=== PATIENT | female | born 1995 | race African-American/Black ===

== ENCOUNTER 2019-02-23 15:47 | Emergency (ER) | payer MEDICAID, OTHER ==
[~2019-02-23] VITALS: Ht 149.9 cm; Wt 81.6 kg
--- NOTE | 2019-02-23 16:21 | NUR ---
ED Nurse Note: Pt walked into ED from home w/ c/o unusual vaginal bleeding. Pt states had menstruation week of Jan 3 and again on Feb 09. Pt states yesterday also had one quick gush of blood. Pt states she has had abdominal pain for weeks in mid abdomen 8/10 pain. No acute distress.
[2019-02-23 16:24] VITALS: BP 110/77
[2019-02-23 16:29] LABS: APPEARANCE,URINE CLEAR; BILIRUBIN, URINE NEGATIVE (NEGATIVE); COLOR,URINE PALE YELLOW; GLUCOSE, URINE (UA) NEGATIVE (NEGATIVE); KETONES,URINE NEGATIVE (NEGATIVE); LEUKOCYTE ESTERASE ,URINE NEGATIVE (NEGATIVE); NITRITE,URINE NEGATIVE (NEGATIVE); PH,URINE 8 (4.5-8.0); PROTEIN,URINE 1+ (NEGATIVE); UROBILINOGEN,URINE 1 MG/DL (0.0-1.0)
[2019-02-23] MEDS ORDERED: Omnipaque-300 100ml vial INJ PRN (16:45)
[2019-02-23] MEDS ORDERED: Ketorolac 30mg Inj IV ONE (16:45)
[2019-02-23 17:08] LABS: ANION GAP 7 mmol/L (5-15); BLOOD UREA NITROGEN 11 mg/dL (7-18); CALCIUM 8.8 MG/DL (8.5-10.1); CARBON DIOXIDE 28 MMOL/L (21-32); CHLORIDE 105 MMOL/L (98-107); CREATININE 0.6 MG/DL (0.55-1.30); POTASSIUM 3.9 MMOL/L (3.5-5.1); SODIUM 140 MMOL/L (136-145)
[2019-02-23 17:12] LABS: ALANINE AMINOTRANSFERASE 22 U/L (12-78); ALBUMIN 4.1 G/DL (3.4-5.0); ALBUMIN/GLOBULIN RATIO 1.2 (1.0-2.7); ALKALINE PHOSPHATASE 52 U/L (46-116); ASPARTATE AMINO TRANSFERASE 20 U/L (15-37); BILIRUBIN,TOTAL 0.4 MG/DL (0.2-1.0)
[2019-02-23 17:21] LABS: BASOPHILS % (AUTO) 1.1 % (0.0-2.0); EOSINOPHILS % (AUTO) 2.8 % (0.0-3.0); HEMOGLOBIN 13.4 G/DL (12.0-16.0); LYMPHOCYTES % (AUTO) 25.4 % (20.0-45.0); MEAN CORPUSCULAR VOLUME 83 FL (80-99); MONOCYTES % (AUTO) 7.1 % (1.0-10.0); NEUTROPHILS % (AUTO) 63.6 % (45.0-75.0); PLATELET COUNT 260 K/UL (150-450); RED BLOOD COUNT 5.07 M/UL (4.20-5.40); RED CELL DISTRIBUTION WIDTH 13.6 % (11.6-14.8); WHITE BLOOD COUNT 9.7 K/UL (4.8-10.8)
--- NOTE | 2019-02-23 18:53 | Diagnostic Imaging Report ---
Clinical Indication: Abdominal pain, epigastric and suprapubic tenderness Technique: No oral contrast utilized, per emergency room physician request IV administration nonionic contrast. Venous phase spiral acquisition obtained through the abdomen and pelvis. Multiplanar reconstructions were generated. Total dose length product 1296 mGycm. CTDIvol(s) 24 mGy. Dose reduction achieved using automated exposure control Comparison: none Findings: There is no evidence of colonic diverticulosis or diverticulitis. The appendix is normal. No small bowel distention. There is a small amount of free fluid in the pelvic cul-de-sac. No free intraperitoneal gas demonstrated.. The distal esophagus, stomach, duodenum are unremarkable. The liver is unremarkable. The gallbladder is nondistended. No gross gallstones. No biliary ductal dilatation. The pancreas, spleen, adrenals, kidneys are all unremarkable. No retroperitoneal or mesenteric mass or adenopathy. No pelvic mass or adenopathy. There is a prominent right ovarian follicle with an enhancing rim. No ovarian enlargement. The uterus is unremarkable. The bladder is unremarkable. The included lung bases are clear. The bones demonstrate bilateral L5 spondylolysis. No evidence of spondylolisthesis.. Impression: No acute abnormality Bilateral L5 spondylolysis. No evidence of spondylolisthesis Small amount of free pelvic fluid, presumably physiologic This agrees with the preliminary interpretation provided overnight by [facility]. The CT scanner at [facility] is accredited by the [employer] and the scans are performed using protocols designed to limit radiation exposure to as low as reasonably achievable to attain images of sufficient resolution adequate for diagnostic evaluation.
--- NOTE | 2019-02-23 18:56 | Emergency Room Report ---
History of Present Illness General Chief Complaint: Vaginal Source: Patient Present Illness HPI 23-year-old female with no significant past medical history here complaining of 3 days of diffuse abdominal pain mainly localized in the left lower quadrant with multiple bouts of nonbloody diarrhea and nonbloody vomiting. Denies fever and chills, URI symptoms, recent travel. Has not taken medication for symptom relief. Patient reports that she used to be an alcoholic however stopped drinking alcohol 1 year ago. Denies tobacco smoke and drug use. Denies urinary frequency and urgency, vaginal discharge. Last menstrual period was a 2 weeks ago week ago and regular. Also reports that this morning she started having vaginal bleeding even though she had her menses Just recently. Denies . Denies dizziness and headache, syncope. No chest pain, shortness of breath, palpitation, and other associated symptoms. Denies history of ovarian cyst and fibroids. Does admit that she eats a lot of spicy and acidic food. Allergies: Coded Allergies: No Known Allergies (Unverified , 02/23/19) Patient History Past Medical History: see triage record Past Surgical History: unable to obtain Pertinent Family History: none Last Menstrual Period: 02/09/19 Now: No Immunizations: UTD Reviewed Nursing Documentation: PMH: Agreed; PSxH: Agreed Nursing Documentation-PMH Past Medical History: No Stated History Review of Systems All Other Systems: negative except mentioned in HPI Physical Exam Vital Signs Date Time Temp Pulse Resp B/P (MAP) Pulse Ox O2 Delivery O2 Flow Rate FiO2 02/23/19 15:54 99.3 82 18 111/75 (87) 99 Room Air Sp02 EP Interpretation: reviewed, normal General Appearance: no apparent distress, alert, GCS 15, non-toxic Head: normocephalic, atraumatic Eyes: bilateral eye normal inspection, bilateral eye PERRL ENT: hearing grossly normal, normal pharynx, no angioedema, normal voice Neck: full range of motion, supple, supple/symm/no masses Respiratory: chest non-tender, lungs clear, normal breath sounds, speaking full sentences Cardiovascular #1: regular rate, rhythm, no edema, no murmur Gastrointestinal: normal bowel sounds, non tender, soft, no mass, no organomegaly, no peritonitis, no bruit, no guarding, no hernia, no pulsatile mass Rectal: deferred Genitourinary: no CVA tenderness Musculoskeletal: back normal, normal range of motion, gait/station normal, non- tender Neurologic: alert, motor strength/tone normal, oriented x3, sensory intact, responsive, speech normal Psychiatric: judgement/insight normal, memory normal, mood/affect normal, no suicidal/homicidal ideation Skin: no rash Lymphatic: no adenopathy Medical Decision Making PA Attestation Diagnosis and treatment plans were reviewed and discussed with my supervising physician Dr. Abbott Diagnostic Impression: Primary Impression: Ovarian cyst Additional Impressions: Gastritis Enteritis DUB (dysfunctional uterine bleeding) ER Course 23-year-old female with no significant past medical history here complaining of 3 days of diffuse abdominal pain mainly localized in the left lower quadrant with multiple bouts of nonbloody diarrhea and nonbloody vomiting. Denies fever and chills, URI symptoms, recent travel. Has not taken medication for symptom relief. Patient reports that she used to be an alcoholic however stopped drinking alcohol 1 year ago. Denies tobacco smoke and drug use. Denies urinary frequency and urgency, vaginal discharge. Last menstrual period was a 2 weeks ago week ago and regular. Also reports that this morning she started having vaginal bleeding even though she had her menses Just recently. Denies . Denies dizziness and headache, syncope. No chest pain, shortness of breath, palpitation, and other associated symptoms. Denies history of ovarian cyst and fibroids. Does admit that she eats a lot of spicy and acidic food. Ddx considered but are not limited to: appendicitis, cholecystis, gastritis, gastroenteritis, UTI, pyelonephritis, SBO, diverticulitis, influenza with GI manifestation, dysfunctional uterine bleeding, complication with , uterine fibroids, ovarian cyst Vital signs: are WNL, pt. is afebrile H&PE are most consistent with: ovarian cyst, DUB, gastritis, enteritis ORDERS: abdominal CT, abdominal pain set, zofran, omeprazole, tylenol ED INTERVENTIONS: NS bolus, toradol, pepcid, zofran DISCHARGE: At this time pt. is stable for d/c to home. Will provide printed patient care instructions, and any necessary prescriptions. Care plan and follow up instructions have been discussed with the patient prior to discharge. Follow-up with primary care provider, referral to spray booth operator needed, dysfunctional uterine bleeding can be secondary to ovarian cyst, keep a BRAT diet. Return to the emergency room if worsening symptoms CT/MRI/US Diagnostic Results CT/MRI/US Diagnostic Results : Imaging Test Ordered: CT abdomen pelvis with contrast Impression CT ABDOMEN & PELVIS With Contrast: Contracted gallbladder. No calcified gallstones. Mild excreting contrast in the renal collecting systems. No hydronephrosis. Small cyst or follicle in the right adnexa which could be further evaluated with ultrasound if clinically indicated. Small amount of free fluid in the pelvis which may be physiologic. No bowel obstruction or inflammation. Normal appendix. Mildly prominent fluid filled small bowel loops are nonspecific but may represent enteritis or ileus in the appropriate clinical setting. Bilateral L5 pars defects without significant spondylolisthesis. Mild prominence of the bladder wall may be secondary to underdistention. Please correlate with urinalysis if concerned for cystitis. Last Vital Signs Date Time Temp Pulse Resp B/P (MAP) Pulse Ox O2 Delivery O2 Flow Rate FiO2 02/23/19 16:24 99.1 18 110/77 98 Room Air 02/23/19 15:54 82 Disposition: HOME, SELF-CARE Condition: Stable Scripts Ondansetron (Zofran) 4 Mg Tablet 4 MG ORAL Q6H PRN for Nausea & Vomiting, #10 TAB Prov: Jeferson Rachel 02/23/19 Acetaminophen* (ACETAMINOPHEN 325MG TABLET*) 325 Mg Tablet 650 MG ORAL Q6H PRN for For Pain, #30 TAB Prov: Jeferson Rachel 02/23/19 Omeprazole (OMEPRAZOLE) 20 Mg Tablet.dr 20 MG ORAL DAILY, #30 TAB Prov: Jeferson Rachel 02/23/19 Referrals: NON PHYSICIAN (PCP) Patient Instructions: Dysfunctional Uterine Bleeding, Gastritis, Adult, Easy-to -Read, Ovarian Cyst, Viral Gastroenteritis, Adult, [id number] Additional Instructions: Take medication as directed, follow-up with your primary care provider and your spray booth operator, if worsening symptoms return to the emergency room Jeferson Rachel Feb 23, 2019 18:56
[2019-02-23] MEDS ORDERED: ZOFRAN4 M1 ORAL (18:58)
[2019-02-23] MEDS ORDERED: OMEPRAZOLE20 M3 ORAL (18:58)
[2019-02-23] MEDS ORDERED: ACETAMINOPHEN325 M1 ORAL (18:58)
--- NOTE | 2019-02-23 19:13 | NUR ---
ED Nurse Note: Patient cleared for discharge with no s/s of acute distress. Patient verbalized understanding of discharge instructions. ID band removed, IV removed. Patient ambulatory with steady gait, A&Ox4, departed with all belongings to her car.
[2019-02-23 19:21] VITALS: BP 110/77
== END 2019-02-23 19:13 | disposition home or self-care (01) ==
LOC: EMR 16:30
DX: N83.201 Unspecified ovarian cyst, right side (principal); K29.70 Gastritis, unspecified, without bleeding; K52.9 Noninfective gastroenteritis and colitis, unspecified; N93.8 Other specified abnormal uterine and vaginal bleeding
CPT/HCPCS: 36415; 74177; 80053; 81003; 81025; 83690; 85025; 96361; 96374; J1885; J7030; Q9967; Z7502; 99284